=== PATIENT | male | born 2005 | race Two or more races ===

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

== ENCOUNTER 2023-02-18 09:31 | Outpatient (CLI) | payer MEDICAID | END 2023-02-18 23:59 | disposition home or self-care (01) | LOC: RAD 09:31 | PROVIDERS: ATTEND Nurse Practitioner Family | DX: R94.01 Abnormal electroencephalogram [EEG] (principal); G40.109 Localization-related (focal) (partial) symptomatic epilepsy and epileptic syndromes with simple partial seizures, not intractable, without status epilepticus | CPT/HCPCS: 95819 ==

== ENCOUNTER 2024-02-04 18:24 | Emergency (ER) | payer MEDICAID | END 2024-02-04 19:33 | disposition left against medical advice (07) | LOC: ER 18:25 | DX: T14.8XXA Other injury of unspecified body region, initial encounter (principal); Z53.21 Procedure and treatment not carried out due to patient leaving prior to being seen by health care provider; W57.XXXA Bitten or stung by nonvenomous insect and other nonvenomous arthropods, initial encounter; Y93.89 Activity, other specified; Y92.89 Other specified places as the place of occurrence of the external cause; Y99.8 Other external cause status ==

== ENCOUNTER 2024-04-17 10:48 | Emergency (ER) | payer MEDICAID ==
[~2024-04-17] VITALS: Ht 185.4 cm; Wt 118.0 kg
[2024-04-17 10:50] VITALS: TEMP 99.9
[2024-04-17] MEDS: normal saline 1000ML IV soln IVB ONE ×2 (11:43→11:46)
[2024-04-17] MEDS: metoclopramide 5 mg/ml inj IV ONE (11:44)
[2024-04-17] MEDS: diphenhydrAMINE 50 mg/ml inj IV ONE (11:45)
[2024-04-17 12:04] LABS: BASOPHILS % (AUTO) 0.2 % (0-1); EOSINOPHILS # (AUTO) 0.1 X10'3 (0-0.9); EOSINOPHILS % (AUTO) 0.6 % (0-6); LYMPHOCYTES # (AUTO) 0.7 X10'3 (1.1-4.8); LYMPHOCYTES % (AUTO) 6.2 % (21-51); MEAN CORPUSCULAR HEMOGLOBIN 31.1 PG (27.0-31.0); MEAN CORPUSCULAR HGB CONC 34.8 g/dL (33.0-36.5); MEAN CORPUSCULAR VOLUME 89.4 FL (78-98); MEAN PLATELET VOLUME 8.3 FL (7.4-10.4); MONOCYTES # (AUTO) 0.6 X10'3 (0-0.9); MONOCYTES % (AUTO) 5.6 % (2-12); NEUTROPHILS % (AUTO) 87.4 % (42-75); PLATELET COUNT 277 X10'3 (140-440); RED BLOOD COUNT 5.81 X10'6 (4.70-6.10); RED CELL DISTRIBUTION WIDTH 13.3 % (11.5-14.5); WHITE BLOOD COUNT 11.5 X10'3 (4.5-11.0)
[2024-04-17 12:07] LABS: HEMOGLOBIN 18.1 g/dl (14.0-17.9)
[2024-04-17 12:16] LABS: ALANINE AMINOTRANSFERASE 145 U/L (12-78); ALBUMIN 4.4 G/DL (3.4-5.0); ALKALINE PHOSPHATASE 72 IU/L (46-116); ANION GAP 12 (8-16); ASPARTATE AMINO TRANSFERASE 66 U/L (10-37); BILIRUBIN,TOTAL 0.6 MG/DL (0.1-1.0); BLOOD UREA NITROGEN 11 MG/DL (7-18); BUN/CREATININE RATIO 13.4 (10.0-20.0); CALCIUM 9.5 MG/DL (8.5-10.1); CHLORIDE 103 MMOL/L (99-107); CREATININE 0.82 MG/DL (0.60-1.10); GLUCOSE 91 MG/DL (70-104); LIPASE 46 U/L (16-77); POTASSIUM 3.8 MMOL/L (3.5-5.1); SODIUM 137 MMOL/L (135-145); TOTAL CARBON DIOXIDE 21.6 MMOL/L (24-32); TOTAL PROTEIN 8.8 G/DL (6.4-8.2); eCRCL 161 ML/MIN; eGFR > 90 ML/MIN
[2024-04-17 13:16] LABS: BILIRUBIN,URINE NEGATIVE (Neg); CLARITY,URINE CLEAR (Clear); COLOR,URINE YELLOW (Yellow); GLUCOSE, URINE NEGATIVE (Neg); KETONES,URINE NEGATIVE (Neg); LEUKOCYTE ESTERASE ,URINE NEGATIVE (Neg); NITRITES, URINE NEGATIVE (Neg); OCCULT BLOOD,URINE NEGATIVE (Neg); PROTEIN,URINE NEGATIVE (Neg); UROBILINOGEN,URINE 0.2 E.U/dL (0.2-1.0)
[2024-04-17 13:21] LABS: UA COLLECTION TYPE CLN CATCH MIDSTREAM
[2024-04-17 13:26] VITALS: BP 127/64; PULSE 74; RESP 16; O2SAT 99
== END 2024-04-17 13:29 | disposition home or self-care (01) ==
LOC: ER 10:48
DX: R11.2 Nausea with vomiting, unspecified (principal); R19.7 Diarrhea, unspecified; Z79.899 Other long term (current) drug therapy
CPT/HCPCS: 36415; 80053; 81003; 83690; 85025; 96360; 99283; J7030